=== PATIENT | male | born 1995 | race African-American/Black ===

== ENCOUNTER 2022-04-01 13:15 | Emergency (ER) | payer BC, OTHER ==
[~2022-04-01] VITALS: Ht 182.9 cm; Wt 63.0 kg
[2022-04-01 15:33] VITALS: BP 121/78
[2022-04-01] MEDS ORDERED: IBUP600T27 PO (16:20)
== END 2022-04-01 16:32 | disposition home or self-care (01) ==
LOC: ER 13:15
DX: S93.602A Unspecified sprain of left foot, initial encounter (principal); S93.601A Unspecified sprain of right foot, initial encounter; X50.1XXA Overexertion from prolonged static or awkward postures, initial encounter; Y93.89 Activity, other specified; Y92.89 Other specified places as the place of occurrence of the external cause; Y99.8 Other external cause status
CPT/HCPCS: 73630